=== PATIENT | male | born 1945 | race Caucasian/White ===

== ENCOUNTER → 2016-08-16 | Outpatient (CLI) | payer OTHER ==
[~2016-08-16] MED LIST: ASPI81TA28 PO; COUMADIN PO; MULTTAB58 PO; OMEP40CA PO; SOTA80TA PO; TAMS0.4C38 PO; ZNTT/150 PO
--- NOTE | 2016-08-16 11:41 | DIAGNOSTIC IMAGING REPORT ---
BONE SCAN WHOLE BODY CLINICAL HISTORY: Prostate carcinoma COMPARISON STUDY: No previous studies for comparison. FINDINGS: The patient was injected with 27.3 mCi of technetium 99m MDP. Three-hour delayed whole body images were acquired. There is unexplained focus of increased activity involving the lateral aspect of the proximal tibial metaphysis. Plain film correlation is advocated. No left renal activity is visualized. Clinical correlation regards to a prior nephrectomy is recommended. There is a focus of increased activity involving the left shoulder, likely arthritic IMPRESSION: 1. No left renal activity is visualized. Clinical correlation in regards to a prior nephrectomy is recommended 2. Unexplained focus of increased activity involving the lateral aspect of the proximal right tibial metaphysis. Films of the right knee are recommended in follow-up. Electronically signed by: Torres Mortensen M.D. 08/16/2016 11:39 AM Dictated Date/Time: 08/16/2016 11:36 AM
== END ==
LOC: C.NUCL 08:25
PROVIDERS: ATTEND Family Medicine
DX: C61 Malignant neoplasm of prostate (principal); R93.7 Abnormal findings on diagnostic imaging of other parts of musculoskeletal system; R93.422 Abnormal radiologic findings on diagnostic imaging of left kidney